=== PATIENT | female | born 1995 | race Caucasian/White ===

== ENCOUNTER 2017-09-03 01:14 | Emergency (ER) | payer BC, OTHER ==
[~2017-09-03] VITALS: Ht 154.9 cm; Wt 57.0 kg
[2017-09-03 01:28] VITALS: TEMP 36.8; Ht 154.9 cm; Wt 57.0 kg
[2017-09-03 02:04] LABS: CALCIUM 8.4 mg/dl (8.5-10.1); CREATININE 0.64 mg/dl (0.60-1.20); POTASSIUM 3.2 mmol/L (3.5-5.1)
--- NOTE | 2017-09-03 06:16 | EMERGENCY ROOM VISIT NOTE ---
History First contact with patient: 01:16 Chief Complaint: ALCOHOL OVERDOSE Stated Complaint: ALCOHOL OVERDOSE Nursing Triage Summary: arrioved via amb with lluvia was found in an apartment building pt admits to drinking alot and smoking " some drug." History of Present Illness The patient is a 22 year old female who presents to the Emergency Room via EMS for evaluation of alcohol/drug overdose. Per EMS, the patient smoked marijuana with a friend and seemed to have a bad reaction to it. The patient does admit to smoking marijuana and drinking some alcohol tonight. Additional history was obtained by a patient's friend who arrived later in the evening. She reported that the patient had one shot of vodka, then smoked marijuana and became very disoriented. The friend does report that the patient was smoking with another friend, who did not have any reaction to the marijuana. He did not believe that the marijuana was laced with anything. The patient denies any trauma or other drug use. Review of Systems A complete 10 point review of systems was reviewed with the patient with pertinent positives and negatives as per history of present illness. All else were negative. Past Medical/Surgical History Medical Problems: (1) No significant active problems Social History Smoking Status: Current Some Day Smoker Alcohol Use: occasionally Drug Use: marijuana Occupation Status: [employer] student Physical Exam Vital Signs Date Time Temp Pulse Resp B/P (MAP) Pulse Ox O2 Delivery O2 Flow Rate FiO2 09/03/17 06:29 88 18 102/52 98 Room Air 09/03/17 05:46 71 18 95/45 96 Room Air 09/03/17 05:09 73 09/03/17 04:53 74 18 97/52 96 Room Air 09/03/17 03:17 77 18 103/48 98 Room Air 09/03/17 02:43 88 12 104/57 97 Room Air 09/03/17 02:09 92 18 117/67 97 Room Air 09/03/17 01:28 36.8 88 18 113/80 100 Room Air 09/03/17 01:27 103 Physical Exam VITALS: Vitals are noted on the nurse's note and reviewed by myself. Vital signs stable. GENERAL: This is a 22-year-old female, sitting up in bed, anxious appearing. SKIN: The skin was without erythema, edema, or bruising. HEAD: Normocephalic atraumatic. EARS: External auditory canals clear. No hemotympanum. EYES: Pupils equal round and reactive to light and accommodation. NOSE: No deformities noted. MOUTH: No loose or chipped teeth. NECK: No cervical spine tenderness. HEART: Regular rate and rhythm without murmurs gallops or rubs. LUNGS: Clear to auscultation bilaterally without wheezes, rales or rhonchi. ABDOMEN: Soft, nontender. MUSCULOSKELETAL: Full range of motion throughout. Strength intact throughout. NEURO: Patient was alert and oriented to person place and time. Speech rapid and slightly disorganized. Medical Decision & Procedures Laboratory Results 09/03/17 01:32 Test 09/03/17 01:25 09/03/17 01:32 Urine Opiates Screen NEG (NEG) Urine Methadone, Qualitative NEG (NEG) Urine Barbiturates NEG (NEG) Urine Phencyclidine (PCP) Level NEG (NEG) Ur Amphetamine/Methamphetamine NEG (NEG) MDMA (Ecstasy) Screen NEG (NEG) Urine Benzodiazepines Screen NEG (NEG) Urine Cocaine Metabolite NEG (NEG) Urine Marijuana (THC) POS (NEG) Anion Gap 11.0 mmol/L (3-11) Est Creatinine Clear Calc Drug Dose 104.8 ml/min Estimated GFR () 147.8 Estimated GFR (Non- 127.6 BUN/Creatinine Ratio 19.0 (10-20) Calcium Level 8.4 mg/dl (8.5-10.1) Human Chorionic Gonadotropin, Qual NEG (NEG) Ethyl Alcohol mg/dL 15.0 mg/dl (0-3) Medical Decision Differential diagnosis includes alcohol intoxication, drug use, infection, hypoglycemia, head trauma, among others. The patient is a 22-year-old female who presents today for evaluation of intoxication. Initially EMS suspected alcohol intoxication, however it became clear after talking to the patient that she had a very small amount of alcohol, however she did admit to using marijuana. The patient was very anxious on initial exam. She was monitored for several hours with significant improvement of symptoms. I spoke with the patient in the morning after she had sobered up and she was feeling much better and had no complaints. She was advised not to do any further drugs and follow-up with [facility] services as needed. She verbalized understanding of my assessment and treatment plan and was discharged home in good condition. Medication Reconcilliation Current Medication List: was personally reviewed by me Blood Pressure Screening Patient's blood pressure: Low blood pressure (likely patient's baseline; asymptomatic) Impression Primary Impression: Marijuana intoxication Departure Information Dispostion Home / Self-Care Condition GOOD Referrals No Doctor, Assigned (PCP) Patient Instructions My [facility] Additional Instructions Avoid any drug use. For pain control, you can use the following [id number] medicines (if >12 yo): - Regular strength (325mg/tab) Tylenol (acetaminophen) 2 tabs every 4-6 hours as needed. Do not exceed 12 tablets in a 24 hour period. Avoid taking more than 4 grams (4000 mg) of Tylenol per day. This includes any other sources of acetaminophen you may take on a regular basis. - Regular strength (200 mg/tab) Advil (ibuprofen) 1-2 tabs every 4-6 hours as needed. Do not exceed a dose of 3200 mg per day. Make sure to rest and drink plenty of fluids throughout the day today. Follow-up with [facility] services as needed. Return to the emergency department with any new or concerning symptoms. Problem Qualifiers Primary Impression: Marijuana intoxication Complication of substance-induced condition: uncomplicated Qualified Codes: F12.920 - Cannabis use, unspecified with intoxication, uncomplicated
[2017-09-03 06:29] VITALS: BP 102/52; PULSE 88; O2SAT 98
== END 2017-09-03 06:31 | disposition home or self-care (01) ==
LOC: EDBD 01:14 → C.EDA 01:15
DX: F12.920 Cannabis use, unspecified with intoxication, uncomplicated (principal); F17.210 Nicotine dependence, cigarettes, uncomplicated